=== PATIENT | female | born 1975 | race Caucasian/White ===

== ENCOUNTER 2017-09-08 18:06 | Emergency (ER) | payer BC ==
[~2017-09-08] VITALS: Ht 167.6 cm; Wt 56.5 kg
[2017-09-08 18:06] VITALS: BP 107/68; PULSE 108; RESP 20; TEMP 98; O2SAT 100
[~2017-09-08 18:06] MED LIST: LORT5TAB PO; METH-703 PO; PREN0.01 PO; ZOFR4TAB3 SL
[2017-09-08 19:04] LABS: AMORPHOUS SEDIMENT, URINE RARE; BACTERIA, URINE RARE /hpf; BILIRUBIN, URINE NEG (NEG); BLOOD, URINE MOD (NEG); CALCIUM OXALATE CRYSTALS,URINE FEW /hpf; GLUCOSE,URINE NEG (NEG); KETONE, URINE 10 mg/dL (NEG); MUCUS URINE MANY /lpf (OCC); NITRITE,URINE NEG (NEG); SQUAMOUS EPITHELIAL CELL URINE 1 /hpf (0-5); URINE COLOR YELLOW (YELLW/STRAW); URINE LEUKOCYTE ESTERASE NEG (NEG)
[2017-09-08 19:07] LABS: HEMATOCRIT 45.2 % (35.0-46.0); HEMOGLOBIN 15.3 GM/DL (11.6-15.3); MEAN CELL VOLUME 95.5 FL (80.0-100.0); MEAN CORPUSCULAR HEMOGLOBIN 32.4 PG (27.0-34.0); MEAN PLATELET VOLUME 10.2 FL (7.0-11.0); PLATELET COUNT 192 TH/MM3 (150-450); RED BLOOD COUNT 4.73 MIL/MM3 (4.00-5.30); WHITE BLOOD COUNT 14.5 TH/MM3 (4.0-11.0)
[2017-09-08 19:19] LABS: ALBUMIN 4.6 GM/DL (3.4-5.0); AST (GOT) 12 U/L (15-37); BICARBONATE 23.9 MEQ/L (21.0-32.0); BLOOD UREA NITROGEN 16 MG/DL (7-18); CALCIUM 9.1 MG/DL (8.5-10.1); CHLORIDE 103 MEQ/L (98-107); GLOMERULAR FILTRATION RATE 61 ML/MIN (>89); GLUCOSE,RANDOM 121 MG/DL (74-106); LIPASE 191 U/L (73-393); SODIUM (NA) 136 MEQ/L (136-145)
[2017-09-08 19:24] LABS: ALKALINE PHOSPHATASE 78 U/L (45-117); ALT (GPT) 22 U/L (10-53); TOTAL BILIRUBIN ADULT 0.5 MG/DL (0.2-1.0); TOTAL PROTEIN 8.1 GM/DL (6.4-8.2)
[2017-09-08 20:11] LABS: BANDS 13 % (0-6); LYMPHOCYTES 5 % (9-44); MONOCYTES 2 % (0-8); NEUTROPHIL # MANUAL DIFF 13.5 TH/MM3 (1.8-7.7); OVALOCYTES 1+ (NORMAL); POLYS (SEG NEUTROPHILS) 80 % (16-70); TOXIC GRANULATION 1+ (NORMAL)
[2017-09-08] MEDS ORDERED: SODIUM CHLOR 0.9% 1000 ML INJ 1,000 ML IV SCH (20:38)
[2017-09-08] MEDS ORDERED: ONDANSETRON HCL 4 MG/2 ML VIAL IVP ONE (20:45)
[2017-09-08] MEDS ORDERED: MORPHINE SULFATE 2 MG/ML INJ IV PUSH ONE (20:45)
[2017-09-08] MEDS ORDERED: PANTOPRAZOLE SODIUM 40 MG VIAL IV PUSH ONE (21:00)
--- NOTE | 2017-09-08 21:12 | PD ---
HPI Chief Complaint: GI Complaint Time Seen by Provider: 20:37 Travel History International Travel<30 days: No Contact w/Intl Traveler<30days: No Traveled to known affect area: No History of Present Illness HPI 42-year-old female that presents to the ED for evaluation of vomiting and abdominal cramping. Patient has had this for a few hours today. Per patient she denies any headache [place]. Per patient she has vomited about 13/14 times. Per patient the last couple times has been brownish liquid while before was green or clear. She is concerned that she might have some blood. Per patient she has epigastric pain when she has the vomiting. Otherwise she has no pain. Currently, examination she had no pain. Per patient when the pain comes is 7 out of 10 and feels like a spasm on her belly. Causes her to vomit. She denies any urinary or bowel movement issues at that she did mention that when she got in the room she had a bowel movement that was liquidy. No blood in it. No other symptoms reported. No fevers chills or sweats. No sick contacts. Patient shows me that vomited and does appear to be somewhat brownish. PFSH Past Medical History Medical History: Denies Significant Hx Influenza Vaccination: Yes ?: Not LMP: 08/29/2017 : 1 Para: 1 Past Surgical History Surgical History: No Previous Surgery Social History Alcohol Use: No Tobacco Use: No Substance Use: No Allergies-Medications (Allergen,Severity, Reaction): Coded Allergies: No Known Allergies (Unverified Adverse Reaction, Unknown, 09/08/17) Reported Meds & Prescriptions Reported Meds & Active Scripts Active Bentyl (Dicyclomine HCl) 10 Mg Cap 10 Mg PO TID PRN Zofran Odt (Ondansetron Odt) 4 Mg Tab 4 Mg SL Q6HR PRN Review of Systems Except as stated in HPI: all other systems reviewed are Neg Physical Exam Narrative GENERAL: SKIN: Warm and dry. HEAD: Atraumatic. Normocephalic. EYES: Pupils equal and round. No scleral icterus. No injection or drainage. ENT: No nasal bleeding or discharge. Mucous membranes pink and moist. Tongue is midline. No uvula deviation. NECK: Trachea midline. No JVD. CARDIOVASCULAR: Regular rate and rhythm. No murmurs, S3, S4. RESPIRATORY: No accessory muscle use. Clear to auscultation. Breath sounds equal bilaterally. GASTROINTESTINAL: Abdomen soft, non-tender in any quadrant to deep or soft palpation, nondistended. Hepatic and splenic margins not palpable. MUSCULOSKELETAL: Extremities without clubbing, cyanosis, or edema. No obvious deformities. Full range of motion of the upper and lower extremities bilaterally. 2+ pulses bilaterally. NEUROLOGICAL: Awake and alert. No obvious cranial nerve deficits. Motor grossly within normal limits. Five out of 5 muscle strength in the arms and legs. Normal speech. PSYCHIATRIC: Appropriate mood and affect; insight and judgment normal. Data Data Last Documented VS Vital Signs Date Time Temp Pulse Resp B/P (MAP) Pulse Ox O2 Delivery O2 Flow Rate FiO2 09/08/17 22:43 73 16 102/63 (76) 96 Room Air 09/08/17 18:06 98.0 Orders Orders Complete Blood Count With Diff (09/08/17 18:14) Comprehensive Metabolic Panel (09/08/17 18:14) Lipase (09/08/17 18:14) Urinalysis - C+S If Indicated (09/08/17 18:14) Ed Urine Pregnancytest Poc (09/08/17 18:14) Ct Abd/Pel W Iv Contrast(Rout) (09/08/17 20:38) Iv Access Insert/Monitor (09/08/17 20:38) Ecg Monitoring (09/08/17 20:38) Ondansetron Inj (Zofran Inj) (09/08/17 20:45) Sodium Chlor 0.9% 1000 Ml Inj (Ns 1000 M (09/08/17 20:38) Morphine Inj (Morphine Inj) (09/08/17 20:45) Pantoprazole Inj (Protonix Inj) (09/08/17 21:00) Iohexol 350 Inj (Omnipaque 350 Inj) (09/08/17 22:20) Ed Discharge Order (09/08/17 23:06) Ondansetron Inj (Zofran Inj) (09/08/17 23:15) Labs Laboratory Tests Test 09/08/17 18:20 09/08/17 18:30 White Blood Count 14.5 TH/MM3 Red Blood Count 4.73 MIL/MM3 Hemoglobin 15.3 GM/DL Hematocrit 45.2 % Mean Corpuscular Volume 95.5 FL Mean Corpuscular Hemoglobin 32.4 PG Mean Corpuscular Hemoglobin Concent 34.0 % Red Cell Distribution Width 13.0 % Platelet Count 192 TH/MM3 Mean Platelet Volume 10.2 FL CBC Comment AUTO DIFF Differential Total Cells Counted 100 Neutrophils % (Manual) 80 % Band Neutrophils % 13 % Lymphocytes % 5 % Monocytes % 2 % Neutrophils # (Manual) 13.5 TH/MM3 Differential Comment FINAL DIFF MANUAL Toxic Granulation 1+ Platelet Estimate NORMAL Platelet Morphology Comment NORMAL Ovalocytes 1+ Blood Urea Nitrogen 16 MG/DL Creatinine 1.00 MG/DL Random Glucose 121 MG/DL Total Protein 8.1 GM/DL Albumin 4.6 GM/DL Calcium Level 9.1 MG/DL Alkaline Phosphatase 78 U/L Aspartate Amino Transf (AST/SGOT) 12 U/L Alanine Aminotransferase (ALT/SGPT) 22 U/L Total Bilirubin 0.5 MG/DL Sodium Level 136 MEQ/L Potassium Level 3.7 MEQ/L Chloride Level 103 MEQ/L Carbon Dioxide Level 23.9 MEQ/L Anion Gap 9 MEQ/L Estimat Glomerular Filtration Rate 61 ML/MIN Lipase 191 U/L Urine Color YELLOW Urine Turbidity HAZY Urine pH 5.0 Urine Specific [place] 1.018 Urine Protein TRACE mg/dL Urine Glucose (UA) NEG mg/dL Urine Ketones 10 mg/dL Urine Occult Blood MOD Urine Nitrite NEG Urine Bilirubin NEG Urine Urobilinogen LESS THAN 2.0 MG/DL Urine Leukocyte Esterase NEG Urine RBC 6 /hpf Urine WBC 1 /hpf Urine Squamous Epithelial Cells 1 /hpf Urine Calcium Oxalate Crystals FEW /hpf Urine Amorphous Sediment RARE Urine Bacteria RARE /hpf Urine Mucus MANY /lpf Microscopic Urinalysis Comment CULT NOT INDICATED MDM Medical Decision Making Medical Screen Exam Complete: Yes Emergency Medical Condition: Yes Medical Record Reviewed: Yes Interpretation(s) CBC & BMP Diagram 09/08/17 18:20 Total Protein 8.1, Albumin 4.6, Calcium Level 9.1, Alkaline Phosphatase 78, Aspartate Amino Transf (AST/SGOT) 12 L, Alanine Aminotransferase (ALT/SGPT) 22, Total Bilirubin 0.5 Last Impressions Abdomen/Pelvis CT 09/08/172037 Signed Impressions: Service Date/Time: August 22:12 - CONCLUSION: 1. 2.6 cm simple, benign appearing cyst of the left ovary. 2. Otherwise within normal limits. The appendix is not clearly visualized but no right lower quadrant inflammatory changes are demonstrated. Jacob Woodward MD UA shows blood and calcium Differential Diagnosis Nausea and vomiting versus gastroenteritis versus gastritis versus kidney stone versus pancreatitis versus diverticulitis versus acute abdomen Narrative Course 42-year-old female that presents to the ED for evaluation of nausea and vomiting. Patient was properly examined and was found to have signs and symptoms of unclear etiology at this time. Labs and imaging were ordered. Patient was given IV doses of antiemetics and pain medication as well as fluids. Patient was reassessed and feels improved. CT and labs were essentially reassuring. Patient did have some blood in the urine as well as calcium oxalate possibly from stone. CT did not show any sign of acute surgical emergency. Cyst noted otherwise unremarkable. Patient feels improved , I rechecked her abdomen and she still does not have any pain on any of the quadrants. Patient happy with care. I answer all the questions. I will give patient a prescription for Zofran and Bentyl to help with her symptoms. She was told to do liquid diet. Rest. Follow with PCP. See ED if any worsening symptoms. She agrees with this plan. Family agrees with this plan. Diagnosis is possible kidney stone versus gastroenteritis with gastroenteritis most likely. Diagnosis Primary Impression: Gastroenteritis Additional Impression: Hematuria Qualified Codes: R31.9 - Hematuria, unspecified Patient Instructions: General Instructions, Narcotic given in the ED Additional Instructions: Take medications as prescribed. Follow with PCP if symptoms do not improve but do not worsen. See ED for any worsening symptoms and he cannot keep anything down. I will recommend that in addition to the medications given to you today to take as Zantac or Pepcid [id number] to help with her symptoms as well. Per CT scan did show a simple cyst on her left ovary that just needs to be observed and followed by PCP. Med/Other Pt SpecificInfo: Prescription(s) given Scripts Dicyclomine (Bentyl) 10 Mg Cap 10 MG PO TID Y for Bowel Management, #14 CAP 0 Refills Prov: Cuate Brice MD 09/08/17 Ondansetron Odt (Zofran Odt) 4 Mg Tab 4 MG SL Q6HR Y for Nausea/Vomiting, #15 TAB 0 Refills Prov: Cuate Brice MD 09/08/17 Disposition: 01 DISCHARGE HOME Condition: Stable Sameer Kirk Sep 08, 2017 21:12
[2017-09-08] MEDS ORDERED: IOHEXOL 350 MG/ML 10 ML VIAL (for RAD DIAG) IVCONTRAST ONE (22:20)
[2017-09-08 22:43] VITALS: BP 102/63; PULSE 73; RESP 16; O2SAT 96
--- NOTE | 2017-09-08 22:54 | RADRPT ---
EXAM DATE/TIME: 09/08/2017 22:12 [facility] COMPARISON: No previous studies available for comparison. INDICATIONS : Abdominal pain with vomiting. IV CONTRAST: 100 cc Omnipaque 350 (iohexol) IV ORAL CONTRAST: No oral contrast ingested. RADIATION DOSE: 4.91 CTDIvol (mGy) MEDICAL HISTORY : None SURGICAL HISTORY : None. ENCOUNTER: Initial ACUITY: 1 day PAIN SCALE: 5/10 LOCATION: abdomen TECHNIQUE: Volumetric scanning of the abdomen and pelvis was performed. Using automated exposure control and ad justment of the mA and/or kV according to patient size, radiation dose was kept as low as reasonably achievable to obtain optimal diagnostic quality images. DICOM format image data is available electro nically for review and comparison. FINDINGS: LOWER LUNGS: The visualized lower lungs are clear. LIVER: Homogeneous density without lesion. There is no dilation of the biliary tree. No calcified gallston es. SPLEEN: Normal size without lesion. PANCREAS: Within normal limits. KIDNEYS: Normal in size and shape. There is no mass, stone or hydronephrosis. ADRENAL GLANDS: Within normal limits. VASCULAR: There is no aortic aneurysm. BOWEL/MESENTERY: The stomach, small bowel, and colon demonstrate no acute abnormality. There is no free intraperitone al air or fluid. I don't clearly see the appendix but no right lower quadrant inflammatory changes ar e seen. ABDOMINAL WALL: Within normal limits. RETROPERITONEUM: There is no lymphadenopathy. BLADDER: No wall thickening or mass. REPRODUCTIVE: There is a 2.6 cm cyst of the left ovary. Uterus and right adnexal region within normal limits. No fr ee fluid in the pelvic cul-de-sac. INGUINAL: There is no lymphadenopathy or hernia. MUSCULOSKELETAL: Within normal limits for patient age. CONCLUSION: 1. 2.6 cm simple, benign appearing cyst of the left ovary. 2. Otherwise within normal limits. The appendix is not clearly visualized but no right lower quadrant inflammatory changes are demonstrated. Jacob Woodward MD on September 08, 2017 at 22:49 Board Certified Radiologist. This report was verified electronically.
[2017-09-08] MEDS ORDERED: ZOFR4TAB3 SL (22:58)
[2017-09-08] MEDS ORDERED: DICY10 PO (22:58)
[2017-09-08] MEDS ORDERED: ONDANSETRON HCL 4 MG/2 ML VIAL IV PUSH ONE (23:15)
== END 2017-09-08 23:35 | disposition home or self-care (01) ==
LOC: NEPE 18:06
DX: K52.9 Noninfective gastroenteritis and colitis, unspecified (principal); R31.9 Hematuria, unspecified; N83.202 Unspecified ovarian cyst, left side
CPT/HCPCS: 74177; 80053; 81001; 83690; 84703; 85007; 85027; 96361; 96374; 96375; 99285; C9113; J2270; J2405; J7030; Q9967